=== PATIENT | female | born 1955 | race Caucasian/White ===

== ENCOUNTER 2018-12-16 23:17 | Inpatient (IN) | payer OTHER, MEDICAID ==
[~2018-12-16] VITALS: Ht 165.1 cm; Wt 68.6 kg
[2018-12-16 23:23] VITALS: BP_SYST 153
--- NOTE | 2018-12-16 23:29 | NUR ---
Patient triaged and placed in waiting room. VSS and patient appears in no acute distress at this time. Accompanied by son, awaiting available bed, and MD notified of need for MSE. Ice pack provided
--- NOTE | 2018-12-17 00:04 | NUR ---
Pt AAOx4 ambulated into ED c/o 04/12 pain to L elbow s/p trip and fall prior to arrival. Denies KO/N/V/D/blurred vision. No other injuries/complaints per pt/noted. Will continue to monitor.
--- NOTE | 2018-12-17 00:04 | NUR ---
Patient to ER bed 02 for evaluation. Side rails up. Report given to Grover ALCARAZ.
--- NOTE | 2018-12-17 00:10 | NUR ---
Dr. Lucia at bedside.
--- NOTE | 2018-12-17 00:24 | NUR ---
Radiology was called to send xr to radiologist to verify dislocation or fracture
[2018-12-17] MEDS ORDERED: MORPHINE 4 MG/ML INJ. SYRINGE IM ONE (00:30)
--- NOTE | 2018-12-17 00:32 | NUR ---
Pt returns from x-ray.
--- NOTE | 2018-12-17 00:36 | NUR ---
Helga vazquez in [facility] - 12/17/18 at 0346 by SDEDAJ Pt returns from X-ray.
--- NOTE | 2018-12-17 01:30 | NUR ---
Pt verbalizes improvement in pain at 6/10. No needs verbalized at this time.
[2018-12-17 01:48] LABS: BASOPHILS # (AUTO) 0.1 K/uL (0.0-0.2); BASOPHILS % (AUTO) 0.7 % (0.0-2.0); EOSINOPHILS # (AUTO) 0.1 K/uL (0.0-0.4); EOSINOPHILS % (AUTO) 0.7 % (0.0-4.0); HEMATOCRIT 43.2 % (36-48); HEMOGLOBIN 14.6 g/dL (12.0-16.0); LYMPHOCYTES # (AUTO) 0.8 K/uL (1.0-5.5); LYMPHOCYTES % (AUTO) 7.7 % (20.5-51.5); MEAN CORPUSCULAR HEMOGLOBIN 32 pg (27-31); MEAN CORPUSCULAR HGB CONC 34 % (32-36); MEAN CORPUSCULAR VOLUME 94 fL (79.0-98.0); MONOCYTES # (AUTO) 0.4 K/uL (0.0-1.0); MONOCYTES % (AUTO) 4.1 % (1.7-9.3); NEUTROPHILS # (AUTO) 8.6 K/uL (1.8-7.7); NEUTROPHILS % (AUTO) 86.8 % (40.0-70.0); PLATELET COUNT (AUTO) 190 K/uL (130-430); RED BLOOD CELL COUNT(AUTO) 4.61 MIL/uL (4.2-6.2); RED CELL DISTRIBUTION WIDTH 13.8 % (9.0-15.0); WHITE BLOOD COUNT (AUTO) 9.8 K/uL (4.8-10.8)
[2018-12-17 01:55] LABS: CREATININE 0.59 mg/dL (0.55-1.30); POTASSIUM 4.6 mmol/L (3.5-5.1)
[2018-12-17 02:00] LABS: ALBUMIN 3.6 g/dL (3.4-4.8); TOTAL BILIRUBIN 0.4 mg/dL (0.0-1.0)
[2018-12-17 02:16] LABS: INR 0.9 (0.8-1.2); PROTHROMBIN TIME 9.3 SECS (9.5-12.5)
--- NOTE | 2018-12-17 03:00 | NUR ---
Pt c/o left elbow pain. Dr. Lucia notified.
[2018-12-17] MEDS ORDERED: MORPHINE 4 MG/ML INJ. SYRINGE IVP ONE (03:15)
--- NOTE | 2018-12-17 03:25 | NUR ---
# 20 gauge angiocath placed to RAC. Use of asceptic technique. Opsite placed over site. Blood return noted. Blood for lab drawn from site. Flushed with 10 cc of normal saline. No evidence of infiltration noted. Patient tolerated well.
--- NOTE | 2018-12-17 03:37 | NUR ---
Dr. Lucia at bedside to discuss results of tests and POC.
--- NOTE | 2018-12-17 04:02 | NUR ---
Patient will be admitted to care of Dr. Stevens. Admitted to Med/Surge unit. Will go to room 125A. Belongings list completed. Summary report printed. Bedside report to be given.
--- NOTE | 2018-12-17 04:16 | NUR ---
ADMISSION: The patient, KENROY FARNSWORTH, 63 y/o, F admitted by SARAH OCONNELL MD,with the diagnosis of left elbow fracture , to room 125 A, was given written information regarding hospital policies, unit procedures and contact persons.
[2018-12-17 04:20] VITALS: BP_SYST 154
--- NOTE | 2018-12-17 06:25 | NUR ---
Closing note: Patient is asleep, no distress. Respirations are even and unlabored on room air. IV is patent and benign. Left arm is elevated on pillow. All needs met. Will endorse to sonam ALCARAZ.
[2018-12-17] MEDS ORDERED: BUPIVACAINE /PF 0.25% 30 ML VIAL INJ ONE (07:15)
[2018-12-17] MEDS ORDERED: fentaNYL CITRATE/PF 100 MCG/2 ML AMP IVP ONE (07:15)
[2018-12-17] MEDS ORDERED: ROPIVACAINE HCL/PF 5 MG/ML 0.5% 30 ML VIAL INJ ONE (07:15)
[2018-12-17] MEDS ORDERED: MIDAZOLAM HCL 5 MG/5 ML VIAL IVP ONE (07:15)
[2018-12-17] MEDS ORDERED: SEVOFLURANE 15 MIN GAS INH ONE (07:15)
[2018-12-17] MEDS ORDERED: BUPIVACAINE /PF 0.75% 10 ML VIAL INJ ONE (07:15)
[2018-12-17] MEDS ORDERED: PROPOFOL 200MG/ 20ML VIAL (DIPRIVAN) IV ONE (07:15)
[2018-12-17] MEDS ORDERED: CEFAZOLIN 2 GM IVPB PREMIX 50 ML IV ONE (07:15)
[2018-12-17] MEDS ORDERED: KETOROLAC TROMETHAMINE 30 MG VIAL IVP ONE (07:15)
[2018-12-17] MEDS ORDERED: LR 1,000 ML IV.SOLN IV ONE (07:15)
[2018-12-17 07:40] VITALS: BP_SYST 137
[2018-12-17] MEDS: MORPHINE 4 MG/ML INJ. SYRINGE IVP PRN ×2 (07:48→13:52)
--- NOTE | 2018-12-17 07:48 | NUR ---
OPENING NOTES, RECEIVED PT IN BED, C/O OF 01/10 PAIN, GIVEN PAIN MED, PT IS AAO, VITALS WNL. NO FEVER NO SOB. PT OFFERED SLING IMMOBILIZER BUT PT REFUSED, DOES NOT WANT TO MOVE ARM OF THIS TIME. STATED SHE WILL CALL US WHEN SHE IS READY FOR IT. BREAKFAST TRAY TAKEN TO ROOM. SAFETY PRECAUTION IN PLACE. CALL LIGHT IN REACH. BED IN LOW POSITION. PT ENCOURAGED TO CALL FOR ASSIST AND PAIN MEDS AND ANY CONCERNS. WILL CONT TO MONITOR.
--- NOTE | 2018-12-17 10:00 | NUR ---
Notes: pt in bed, no c/o pain, refused to eat breakfast. does not want to wear the sling for her left arm yet . pt does not want to move as to this time. will cont to monitor.
[2018-12-17 11:00] VITALS: BP_SYST 140
--- NOTE | 2018-12-17 11:54 | NUR ---
CONSULTATION PAGED REASON FOR CONSULTATION:ELBOW FRACTURE WAS CONSULT CALLED?Y PERSON WHO WAS NOTIFIED:ALEX CONSULTING PHYSICIAN:JONO MANLEY CONTRACT ENGINEER SPECIALTY:ORTHO CONTRACT ENGINEER PHONE NUMBER:[phone] REQUESTING PHYSICIAN:ASRAH SHETH
--- NOTE | 2018-12-17 12:18 | NUR ---
Notes: dr leyva was here and seen pt. new orders given. consult for dr tam called in by unit sect. Jeremiah.
[2018-12-17] MEDS ORDERED: LOSARTAN POTASSIUM 50 MG TABLET (COZAAR) PO ONE (12:30)
--- NOTE | 2018-12-17 13:05 | NUR ---
Notes: seen pt in bed, pt awaken for lunch. encouraged pt to eat, informed pt that pain med is due at 1330, family walked to visit patient.
--- NOTE | 2018-12-17 13:17 | NUR ---
Notes: Dr Davis was here and spoke with patient re surgery. family at bedside.
--- NOTE | 2018-12-17 13:52 | NUR ---
pt given pain med for 7/10 left arm pain. safety precaution in place. call light in reach. will cont to monitor.
[2018-12-17 16:20] VITALS: BP_SYST 154
--- NOTE | 2018-12-17 16:20 | NUR ---
pt voided, sent sample to lab, no c/o pain. no sob, no resp distress. left arm has intact sensation. no tingling or numbness. arm swollen , dr tam is aware and saw pt this morning. this rn has explained all the pre op testing that was ordered by her doctors.
[2018-12-17 16:43] LABS: BILIRUBIN,URINE NEGATIVE (NEGATIVE); CLARITY/URINE CLEAR (CLEAR); COLOR,URINE YELLOW (YELLOW); GLUCOSE,URINE NEGATIVE (NEGATIVE); KETONES,URINE NEGATIVE (NEGATIVE); NITRITE, URINE NEGATIVE (NEGATIVE); PH,URINE 5.5 (5.0-8.0); PROTEIN URINE NEGATIVE (NEGATIVE); UROBILINOGEN,URINE 0.2 (0.2-1.0)
[2018-12-17 16:56] LABS: BLOOD, URINE TRACE (NEGATIVE); LEUKOCYTE ESTERASE ,URINE TRACE (NEGATIVE)
[2018-12-17 16:59] LABS: BACTERIA,URINE FEW /HPF (None Seen); MUCUS,URINE None Seen /LPF (None Seen); RBC,URINE NONE SEEN /HPF (0-3)
--- NOTE | 2018-12-17 18:11 | NUR ---
CLOSING NOTES, PT HAS BEEN STABLE THE WHOLE SHIFT. NO FEVER, GIVEN PAIN MEDS REQUESTED. PT SEEN BY PRIMARY MD AND SURGEON. PT WILL HAVE SURGERY IN AM. CONSENT SIGN. PRE OP CHECKLIST STARTED. PT NEED TO BE NPO AFTER MIDNIGHT AND NEED TO SIGN CONSENT FOR ANESTHESIA. WILL ENDORSE TO NIGHT RN.
--- NOTE | 2018-12-17 19:10 | NUR ---
OPENING NOTES RECEIVED PATIENT IN BED AAO X4. BREATHING UNLABORED ON ROOM AIR. DENIES PAIN. LEFT ARM SLING IN PLACED. PLAN OF CARE REVIEWED WITH PATIENT. BED IN LOWEST LOCKED POSITION. REFUSING BED ALARM ACTIVATION. PLACED CALL LIGHT WITH IN REACH.
[2018-12-17 19:58] VITALS: BP_SYST 132
--- NOTE | 2018-12-17 21:00 | NUR ---
ROUNDS PATIENT RESTING IN BED. NO DISTRESS NOTED. NO PAIN COMPLAINT AT THIS TIME. CALL LIGHT WITH IN REACH.
--- NOTE | 2018-12-18 00:18 | NUR ---
NPO PATIENT REMINDED OF NPO STATUS FOR SURGERY. NO PAIN COMPLAINT AT THIS TIME.
[2018-12-18 02:32] VITALS: BP_SYST 130
--- NOTE | 2018-12-18 02:43 | NUR ---
ROUNDS PATIENT RESTING IN BED. NO DISTRESS NOTED.
--- NOTE | 2018-12-18 05:22 | NUR ---
IV LINE PATIENT IV LINE OUT. NEW IV LINE INSERTED TO RT HAND GAUGE 22 WITH GOOD BLOOD RETURN.
[2018-12-18 05:23] VITALS: BP_SYST 139
--- NOTE | 2018-12-18 06:28 | NUR ---
CLOSING NOTES PATIENT RESTING IN BED AWAKE. NO C/O PAIN AT THIS TIME. LEFT ARM SLING KEPT IN PLACED. IV LINE INTACT. PATIENT NEEDS ATTENDED. CALL LIGHT WITH IN REACH. BED IN LOWEST LOCKED POSITION. KEPT NPO FOR SCHEDULED SURGERY TODAY.
--- NOTE | 2018-12-18 07:20 | NUR ---
INITIAL ROUNDS Received pt AAOx4, no s/s resp distress, no c/o pain or discomfort. OR Tech David here to picker / packer pt for surgery. Pt's at bedside. Informed pt I will see here when she gets back.
[2018-12-18] MEDS ORDERED: POLYMYXIN 500,000/BACIT.10,000 UNITS in NS IRR 1 L IR ONE (07:35)
[2018-12-18] MEDS ORDERED: ONDANSETRON HCL 4 MG/2 ML VIAL IVP PRN (08:15)
[2018-12-18] MEDS ORDERED: fentaNYL CITRATE/PF 100 MCG/2 ML AMP IVP PRN ×2 (08:15)
[2018-12-18] MEDS ORDERED: KETOROLAC TROMETHAMINE 30 MG VIAL IVP PRN (08:15)
[2018-12-18] MEDS ORDERED: hydrALAZINE HCL 20 MG/ML VIAL IVP ONE (10:15)
[2018-12-18] MEDS ORDERED: hydrALAZINE HCL 20 MG/ML VIAL ONE (10:20)
[2018-12-18] MEDS ORDERED: ONDANSETRON HCL 4 MG/2 ML VIAL ONE (10:24)
[2018-12-18] MEDS ORDERED: METOCLOPRAMIDE HCL 10 MG/2 ML VIAL ONE (10:38)
[2018-12-18] MEDS ORDERED: MIDAZOLAM HCL 2 MG/2 ML VIAL (VERSED) IVP ONE (10:45)
[2018-12-18] MEDS ORDERED: MIDAZOLAM HCL 5 MG/5 ML VIAL ONE (10:49)
--- NOTE | 2018-12-18 11:05 | NUR ---
PT BACK FROM OR Pt back from OR, received report from SLIDE MACHINE TENDER. Pt squirming in bed with constipation pain to low back. Ice pack placed to low back. Pt's at bedside. Left elbow in sling. Calling MD for suppository per pt request. [employer] BOAT OPERATOR at bedside.
[2018-12-18] MEDS ORDERED: HYDROcodone/ACETAMIN 5-325 MG TAB (NORCO/ VICODIN) PO PRN (11:30)
[2018-12-18] MEDS ORDERED: DIPHENHYDRAMINE HCL 25 MG CAPSULE PO PRN (11:30)
[2018-12-18] MEDS ORDERED: HYDROCORTISONE ACETATE 1 SUPP (ANUSOL HC) RC ONE (11:45)
[2018-12-18] MEDS ORDERED: MILK OF MAGNESIA 30 ML UDC PO PRN (11:45)
[2018-12-18] MEDS: MORPHINE 4 MG/ML INJ. SYRINGE IVP PRN ×2 (11:51→18:27)
[2018-12-18] MEDS: LOSARTAN POTASSIUM 50 MG TABLET (COZAAR) PO SCH (12:02)
[2018-12-18] MEDS: D5LR 1,000 ML IV SCH ×2 (12:03→19:54)
[2018-12-18 12:30] VITALS: BP_SYST 141
--- NOTE | 2018-12-18 13:45 | NUR ---
ROUNDS Pt now resting quietly with no s/s resp distress, no further c/o pain or discomfort. Pt's at bedside. Call light within reach.
[2018-12-18 16:50] VITALS: BP_SYST 135
--- NOTE | 2018-12-18 18:10 | NUR ---
BLEEDING Pt concerned about bleeding at the incision site on the left elbow, informed pt that some seepage at site does occur normally with ortho surgery. Dressing reinforced and new DESTINY bandages placed to site. Dr. Davis to inform him of bleeding-awaiting call back. Pt tolerated well.
[2018-12-18] MEDS: ONDANSETRON HCL 4 MG/2 ML VIAL IVP PRN (18:20)
--- NOTE | 2018-12-18 18:55 | NUR ---
CLOSING NOTE/MD Pt now resting quietly in be with no s/s resp distress, no further c/o nausea, pain or discomfort. IVF infusing well to RAC at ordered rate with no s/s infiltration to site. Left arm in splint elevated on a pillow. Dr. Davis called and informed of pt's bleeding at incision site-MD stated that is normal and that he will see pt early in the morning. Needs met, call light within reach.
--- NOTE | 2018-12-18 19:20 | NUR ---
initial notes: pt is awake, alert, oriented x 4. no complain of pain. no sob. stable vital sign. ivf infusing to right hand gauge 22- intact and patent. pt has dressing covering his left UE- neurovascular- good circulation. explained plan of care for tonight. pt agree. needs attended. call light in reach. side rails up x 2. low bed position. at bedside. will monitor.
[2018-12-18 19:34] VITALS: BP_SYST 138
[2018-12-18] MEDS: ceFAZolin SODIUM 1 GM in D5W 50 ML IV SCH (19:49)
[2018-12-18] MEDS ORDERED: SENNOSIDES 8.6 MG TABLET PO SCH (21:00)
--- NOTE | 2018-12-18 22:00 | NUR ---
notes: seen pt ambulate to bathroom. steady gait assisted by her . back to bed. needs attended. shawna light in reach. will follow-up.
[2018-12-18] MEDS: DOCUSATE SODIUM 250 MG CAPSULE PO SCH (22:18)
--- NOTE | 2018-12-19 | NUR ---
notes: pt is resting. no pain. stable. ivf infusing well. will monitor.
[2018-12-19 01:23] VITALS: BP_SYST 135
--- NOTE | 2018-12-19 01:56 | NUR ---
sleeping. comfortable. no distress. stable. will continue to follow up.
[2018-12-19] MEDS: ceFAZolin SODIUM 1 GM in D5W 50 ML IV SCH (03:20)
[2018-12-19] MEDS: ONDANSETRON HCL 4 MG/2 ML VIAL IVP PRN (03:23)
--- NOTE | 2018-12-19 04:30 | NUR ---
notes: pt wakes up complain of pain to her left elbow. stable. explained pain medicationa nd its side effects.needs attended. call light in reach. side rails up. will follow-up.
[2018-12-19] MEDS: MORPHINE 4 MG/ML INJ. SYRINGE IVP PRN ×2 (04:56→10:45)
[2018-12-19] MEDS ORDERED: HYDR-4272 PO (05:43)
--- NOTE | 2018-12-19 06:00 | NUR ---
notes: sleeping, no pain, stable. will continue to monitor.
[2018-12-19] MEDS: D5LR 1,000 ML IV SCH (06:12)
--- NOTE | 2018-12-19 07:25 | NUR ---
closing. resting. no pain. no sob. wakes up when check by incoming nurse. ivf infusing well. needs attended the whole shift. bed side report given to am rn.
[2018-12-19 08:34] VITALS: BP_SYST 134
--- NOTE | 2018-12-19 10:00 | NUR ---
Mobility Patient able to ambulate to bathroom with stanbye assist with sling in the left arm , tolerates well. initiate fall precaution.
[2018-12-19] MEDS: DOCUSATE SODIUM 250 MG CAPSULE PO SCH (10:07)
[2018-12-19] MEDS: LOSARTAN POTASSIUM 50 MG TABLET (COZAAR) PO SCH (10:08)
[2018-12-19 12:47] VITALS: BP_SYST 138
[2018-12-19 13:17] VITALS: BP_SYST 138
--- NOTE | 2018-12-19 14:57 | NUR ---
PATIENT RESTING: Patient resting quietly. No acute distress noted. Vital signs within normal range. left arm elevated to pillow decrease edema /pain
[2018-12-19 16:17] VITALS: BP_SYST 130
--- NOTE | 2018-12-19 17:10 | NUR ---
D/C Patient Patient given medication reconciliation form and D/C instructions. Exit Care provided. Patient verbalized understanding. MD discussed with patient the results and treatment provided. Ambulatory with standbye assist for discharge to home. Patient in stable condition, ID band removed. IV catheter removed, intact and dressing applied, no active bleeding. Rx NORCO of given. Patient educated on pain management., All belongings sent with patient.
--- NOTE | 2018-12-19 17:25 | NUR ---
Discharge home accompanied by the ambulatory wirh left arm sling .
== END 2018-12-19 17:25 | disposition home or self-care (01) | DRG 512 ==
LOC: SED 23:17 → SMU 12-17 03:40
PROVIDERS: ADMIT Family Medicine; ATTEND Family Medicine
PROC: 0PSL04Z Reposition Left Ulna with Internal Fixation Device, Open Approach (ICD-10-PCS; principal; 2018-12-18 08:00)
DX: S52.032A Displaced fracture of olecranon process with intraarticular extension of left ulna, initial encounter for closed fracture (principal); I10 Essential (primary) hypertension; K59.00 Constipation, unspecified; W01.0XXA Fall on same level from slipping, tripping and stumbling without subsequent striking against object, initial encounter; Y93.89 Activity, other specified; Y92.89 Other specified places as the place of occurrence of the external cause; Y99.8 Other external cause status
CPT/HCPCS: 36415; 71045; 76000; 80053; 81000-TC; 85025; 85610-TC; 85730-TC; 87081; 93005; 96372; 96374; 99285; C1713; J0360; J0690; J1885; J2250; J2270; J2405; J2704; J2765; J3010; J3490; J7060; J7120; L3650

== ENCOUNTER 2021-07-13 12:07 | Emergency (ER) | payer OTHER, MEDICAID ==
[~2021-07-13] VITALS: Ht 165.1 cm; Wt 66.7 kg
[~2021-07-13 12:07] MED LIST: HYDR-4272 PO
--- NOTE | 2021-07-13 12:15 | NUR ---
Pt triaged and placed in waiting room. V/S stable, no acute distress noted.
[2021-07-13 13:11] VITALS: BP_SYST 139
--- NOTE | 2021-07-13 15:20 | NUR ---
Patient to ER bed 7 to gown for evaluation. Side rails up. Report given to LISSA Herrera.
--- NOTE | 2021-07-13 15:25 | NUR ---
PT CAME IN FROM HOME C/O WHITE THICK VAGINAL DC X 10 DAYS. PT REPORTS BUYING MONOSTAT OTC AND STATES SHE TRIED IT FOR 7 DAYS BUT IS STILL HAVING DISCHARGE, PAIN AND SWELLING TO VAGINAL AREA. ABLE TO VOID, DENIES PAINFUL VOIDING OR FLANK PAIN. PT IS AMBULATORY, AAOX4, V/S STABLE
--- NOTE | 2021-07-13 15:34 | NUR ---
PT AMBULATES WITH STEADY GAIT TO BATHROOM, ABLE TO PROVIDE A URINE SAMPLE
[2021-07-13 15:59] LABS: BILIRUBIN,URINE NEGATIVE (NEGATIVE); COLOR,URINE YELLOW (YELLOW); GLUCOSE,URINE NEGATIVE (NEGATIVE); KETONES,URINE NEGATIVE (NEGATIVE); LEUKOCYTE ESTERASE ,URINE 2+ (NEGATIVE); NITRITE, URINE NEGATIVE (NEGATIVE); PROTEIN URINE NEGATIVE (NEGATIVE); UROBILINOGEN,URINE 0.2 (0.2-1.0)
[2021-07-13 16:13] LABS: BLOOD, URINE TRACE (NEGATIVE); CLARITY/URINE HAZY (CLEAR)
--- NOTE | 2021-07-13 16:40 | NUR ---
AT THE BEDSIDE WITH DR. DANIELSON FOR PELVIC/VAGINAL EXAM. SWABS COLLECTED BY MD PT TOLERATED WELL
[2021-07-13 17:03] LABS: WBC,URINE 20-50 /HPF (0-3)
[2021-07-13 17:04] LABS: BACTERIA,URINE FEW /HPF (None Seen); MUCUS,URINE None Seen /LPF (None Seen)
[2021-07-13] MEDS ORDERED: CLOT45CR29 VG (17:55)
[2021-07-13] MEDS ORDERED: NITR-85 PO (17:55)
[2021-07-13 18:00] VITALS: BP_SYST 139
--- NOTE | 2021-07-13 18:01 | NUR ---
Patient given written and verbal discharge instructions and verbalizes understanding. ER MD discussed with patient the results and treatment provided. Patient in stable condition. ID arm band removed. Rx of CLOTRIMAZOLE AND MACROBID given. Patient educated on pain management and to follow up with PMD. Pain Scale 0/10. Opportunity for questions provided and answered. Medication side effect fact sheet provided.
--- NOTE | 2021-07-18 18:39 | NUR ---
RECEIVED +GONORRHEA CULTURE FROM LAB, DISCUSSED CASE WITH DR IRVIN, CALLED PT AT GIVEN NUMBER [phone], SPOKE WITH PT AND EXPLAINED TO HAVE HER RETURN TO SEE A DR FOR TREATMENT. EXPLAINED FOR PT TO NOTIFIED ALL SEXUAL PARTNERS ABOUT INFECTION, PT STATES SHE UNDERSTANDS
== END 2021-07-13 18:00 | disposition home or self-care (01) ==
LOC: SED 12:07
DX: N76.0 Acute vaginitis (principal); Z79.899 Other long term (current) drug therapy
CPT/HCPCS: 81000; 87070-TC; 87086; 87210-TC; 99283

== ENCOUNTER 2021-07-19 11:43 | Emergency (ER) | payer OTHER, MEDICAID, SELFPAY ==
[~2021-07-19] VITALS: Ht 165.1 cm; Wt 59.0 kg
[~2021-07-19 11:43] MED LIST changes: +CLOT45CR29 VG; +NITR-85 PO
[2021-07-19 12:36] VITALS: BP_SYST 113
--- NOTE | 2021-07-19 12:38 | NUR ---
sent to anne
--- NOTE | 2021-07-19 12:39 | NUR ---
Patient to ER bed H3 to gown for evaluation. Side rails up.
--- NOTE | 2021-07-19 12:40 | NUR ---
ER DR. ARMSTRONG EXAMINING PT
[2021-07-19] MEDS ORDERED: DOXY100C5 PO (12:48)
--- NOTE | 2021-07-19 12:48 | NUR ---
PT CAME TO ER FOR TX FOR + GONORRHEA TEST RESULTS, DENIES ANY CURRENT SYMPTOMS, PT IS AMBULATORY, AAOX4, VSS
[2021-07-19] MEDS ORDERED: cefTRIAXone 500 MG in LIDOCAINE 1%, 20 ML MDV 1 ML IM ONE (13:00)
[2021-07-19 13:01] VITALS: BP_SYST 113
--- NOTE | 2021-07-19 13:02 | NUR ---
Patient given written and verbal discharge instructions and verbalizes understanding. ER MD discussed with patient the results and treatment provided. Patient in stable condition. ID arm band removed. Rx of DOXYCYCLINE given. Patient educated on pain management and to follow up with PMD. Pain Scale 0/10. Opportunity for questions provided and answered. Medication side effect fact sheet provided.
== END 2021-07-19 13:02 | disposition home or self-care (01) ==
LOC: SED 11:43
DX: A54.02 Gonococcal vulvovaginitis, unspecified (principal); Z79.899 Other long term (current) drug therapy
CPT/HCPCS: 96372; 99283; J0696